=== PATIENT | female | born 1975 | race African-American/Black ===

== ENCOUNTER 2019-02-18 12:21 | Emergency (ER) | payer OTHER ==
--- NOTE | 2019-02-18 13:50 | RAD REPORT ---
EXAM DESCRIPTION: USExtremmoriah Venous Uni Ltd4 1:38 pm CLINICAL HISTORY: Right leg pain . COMPARISON: None. FINDINGS: Right common femoral, superficial femoral, popliteal and right posterior tibial veins are compressible and demonstrate augmentation. Doppler demonstrates good flow. IMPRESSION: No evidence of deep venous thrombosis involving the right lower extremity.
--- NOTE | 2019-02-18 13:53 | RAD REPORT ---
EXAM DESCRIPTION: RAD - Knee Right 3 View - 02/18/2019 1:30 pm CLINICAL HISTORY: Right knee pain FINDINGS: No fracture or dislocation is seen. Knee joint effusion is present. Prominent patellar spurs
[2019-02-18] MEDS ORDERED: KETOROLAC 30 MG/ML INJ ONE (14:26)
--- NOTE | 2019-02-18 14:28 | ER ---
Nurse's Notes [facility] Name: Viv Munoz Age: 43 yrs Sex: Female : 1975 Arrival Date: 02/18/2019 Time: 12:24 Bed 12 Private MD: Lorne Gilliland T Diagnosis: Pain in right knee Presentation: 02/18 12:28 Presenting complaint: Patient states: left knee pain since Tuesday. Denies injury or sv fall. Transition of care: patient was not received from another setting of care. Onset of symptoms was February 13, 2019. Care prior to arrival: None. 12:28 Method Of Arrival: Ambulatory sv 12:28 Acuity: KAREN 4 sv 13:48 Risk Assessment: Do you want to hurt yourself or someone else? Patient reports no hb desire to harm self or others. Initial Sepsis Screen: Does the patient meet any 2 criteria? No. Patient's initial sepsis screen is negative. Does the patient have a suspected source of infection? No. Patient's initial sepsis screen is negative. Historical: - Allergies: 12:29 diphenhydramine HCl; sv 12:29 hydrocodone bitartrate; sv 12:29 Vicodin; sv - PMHx: 12:29 None; sv - PSHx: 12:29 Cholecystectomy; Breast reduction; sv - Immunization history:: Adult Immunizations up to date. - Social history:: Smoking status: Patient/guardian denies using tobacco. - Ebola Screening: : No symptoms or risks identified at this time. Screenin:49 Abuse screen: Denies threats or abuse. Denies injuries from another. Nutritional hb screening: No deficits noted. Tuberculosis screening: No symptoms or risk factors identified. Fall Risk None identified. Assessment: 13:47 General: Appears in no apparent distress. Behavior is calm, cooperative. Pain: Pain hb currently is 10 out of 10 on a pain scale. Neuro: Level of Consciousness is awake, alert, obeys commands, Oriented to person, place, time, situation. Cardiovascular: Capillary refill < 3 seconds Patient's skin is warm and dry. Respiratory: Airway is patent Respiratory effort is even, unlabored, Respiratory pattern is regular, symmetrical. GI: No signs and/or symptoms were reported involving the gastrointestinal system. : No signs and/or symptoms were reported regarding the genitourinary system. EENT: No signs and/or symptoms were reported regarding the EENT system. Derm: Skin is intact, is healthy with good turgor. Musculoskeletal: Reports left knee pain. 14:30 Reassessment: Patient appears in no apparent distress at this time. Patient and/or hb family updated on plan of care and expected duration. Pain level reassessed. Patient is alert, oriented x 3, equal unlabored respirations, skin warm/dry/pink. Patient states symptoms have improved. Vital Signs: 12:29 BP 118 / 76; Pulse 70; Resp 18; Temp 98; Pulse Ox 100% ; Weight 81.65 kg; Height 5 ft. sv 0 in. (152.40 cm); Pain 10/10; 12:29 Body Mass Index 35.15 (81.65 kg, 152.40 cm) sv ED Course: 12:24 Patient arrived in ED. mr 12:25 Lorne Gilliland MD is Private Physician. mr 12:28 Triage completed. sv 12:29 Arm band placed on. sv 12:30 Juan Sales PA is PHCP. jmm 12:30 Seven Guidry MD is Attending Physician. jmm 12:48 Selin Julien RN is Primary Nurse. hb 12:49 Call light in reach. hb 13:30 Knee Right 3 View XRAY In Process Unspecified. EDMS 13:39 US Extremity Venous Unilateral Ltd In Process Unspecified. EDMS 14:28 Roger Maciel MD is Referral Physician. [facility] 15:12 No provider procedures requiring assistance completed. Patient did not have IV access hb during this emergency room visit. Administered Medications: 14:20 Drug: Ketorolac 30 mg Route: IM; Site: right deltoid; la1 15:03 Follow up: Response: No adverse reaction; Pain is decreased la1 Outcome: 14:28 Discharge ordered by . m 15:12 Discharged to home ambulatory. hb 15:12 Condition: stable 15:12 Discharge instructions given to patient, Instructed on discharge instructions, follow up and referral plans. medication usage, Demonstrated understanding of instructions, follow-up care, medications, Prescriptions given X 1. 15:15 Patient left the ED. hb Signatures: Dispatcher [employer] EDMS Phyllis Key RN RN Juan Sales PA PA jmm Rivera, Mary mr Kevin Dimas RN RN la1 Selin Julien, RN RN hb
--- NOTE | 2019-02-18 14:29 | EDPHYS ---
Physician Documentation [facility] Name: Viv Munoz Age: 43 yrs Sex: Female : 1975 Arrival Date: 02/18/2019 Time: 12:24 Bed 12 Private MD: Lorne Gilliland T ED Physician Seven Guidry HPI: 02/18 12:40 This 43 yrs old Black Female presents to ER via Ambulatory with complaints of Knee Pain.jmm 12:40 The patient presents with pain. The complaints affect the posterior aspect of right jmm knee and right knee. Onset: The symptoms/episode began/occurred gradually. Associated signs and symptoms: Pertinent negatives fever. This is a 43 year old female with no chronic medical conditions that presents to the ED with complaints of right knee pain beginning this past Tuesday. Patient denies trauma. Patient localizes pain to the anterior and posterior regions of the right knee. . Historical: - Allergies: 12:29 diphenhydramine HCl; sv 12:29 hydrocodone bitartrate; sv 12:29 Vicodin; sv - PMHx: 12:29 None; sv - PSHx: 12:29 Cholecystectomy; Breast reduction; sv - Immunization history:: Adult Immunizations up to date. - Social history:: Smoking status: Patient/guardian denies using tobacco. - Ebola Screening: : No symptoms or risks identified at this time. ROS: 12:40 Constitutional: Negative for fever, chills, and weight loss, Cardiovascular: Negative jmm for chest pain, palpitations, and edema, Respiratory: Negative for shortness of breath, cough, wheezing, and pleuritic chest pain. 12:40 MS/extremity: Positive for pain. 12:40 All other systems are negative. Exam: 12:40 Constitutional: This is a well developed, well nourished patient who is awake, alert, jmm and in no acute distress. Head/Face: atraumatic. Eyes: EOMI, no conjunctival erythema appreciated ENT: Moist Mucus Membranes Neck: Trachea midline, Supple Chest/axilla: Normal chest wall appearance and motion. Cardiovascular: Regular rate and rhythm. No edema appreciated Respiratory: Normal respirations, no respiratory distress appreciated Abdomen/GI: Non distended, soft Skin: General appearance color normal 12:40 Musculoskeletal/extremity: right anterior knee tender to palpation, no obvious deformity appreciated, FROM appreciated, compartments are soft, NVI. 12:40 Skin: Appearance: Color: normal in color. 12:40 Neuro: Orientation: is normal, Mentation: is normal, Memory: is normal. 12:40 Psych: Behavior/mood is pleasant, cooperative. Vital Signs: 12:29 BP 118 / 76; Pulse 70; Resp 18; Temp 98; Pulse Ox 100% ; Weight 81.65 kg; Height 5 ft. sv 0 in. (152.40 cm); Pain 10/10; 12:29 Body Mass Index 35.15 (81.65 kg, 152.40 cm) sv MDM: 12:38 Patient medically screened. [facility] 14:26 Data reviewed: vital signs, nurses notes. Counseling: I had a detailed discussion with [facility] the patient and/or guardian regarding: the historical points, exam findings, and any diagnostic results supporting the discharge/admit diagnosis, radiology results, the need for outpatient follow up, to return to the emergency department if symptoms worsen or persist or if there are any questions or concerns that arise at home. ED course: Patient is alert and non toxic in appearance in the ED. Patient is afebrile, patient has FROM in the right knee. I do not suspect septic joint. Patient is advised to follow up with ortho for further evaluation. Patient otherwise advised to return to the ED if symptoms worsen. Patient understood and agrees with the plan of care. . 02/18 12:39 Order name: Knee Right 3 View XRAY; Complete Time: 13:57 [facility] 02/18 12:39 Order name: US Extremity Venous Unilateral Ltd; Complete Time: 13:57 [facility] 02/18 13:57 Order name: Asif wrap-joint; Complete Time: 14:13 [facility] Administered Medications: 14:20 Drug: Ketorolac 30 mg Route: IM; Site: right deltoid; la1 15:03 Follow up: Response: No adverse reaction; Pain is decreased la1 Disposition: 02/19 07:53 Co-signature as Attending Physician, Seven Guidry MD I agree with the assessment and ismael plan of care. Disposition: 02/18/19 14:28 Discharged to Home. Impression: Pain in right knee. - Condition is Stable. - Discharge Instructions: Knee Pain. - Prescriptions for Diclofenac Sodium 75 mg Oral Tablet Sustained Release - take 1 tablet by ORAL route 2 times per day; 30 tablet. - Medication Reconciliation Form, Thank You Letter, Antibiotic Education, Prescription Opioid Use, Work release form form. - Follow up: Roger Maciel MD; When: 2 - 3 days; Reason: Recheck today's complaints, Continuance of care, Re-evaluation by your physician. Signatures: Dispatcher [employer] Phyllis Jones RN RN Seven Virk MD MD cha Mickail, Joel, PA PA jmm Attema, Lee, RN RN la1 Selin Julien RN RN hb Corrections: (The following items were deleted from the chart) 02/18 15:15 14:28 02/18/2019 14:28 Discharged to Home. Impression: Pain in right knee. Condition is hb Stable. Forms are Medication Reconciliation Form, Thank You Letter, Antibiotic Education, Prescription Opioid Use. Follow up: Roger Maciel; When: 2 - 3 days; Reason: Recheck today's complaints, Continuance of care, Re-evaluation by your physician. mireya
[2019-02-18 15:21] VITALS: BP 118/76; TEMP 98; O2SAT 100
== END 2019-02-18 15:15 | disposition home or self-care (01) ==
LOC: ER 12:21
DX: M25.561 Pain in right knee (principal); Z88.5 Allergy status to narcotic agent; Z88.8 Allergy status to other drugs, medicaments and biological substances
CPT/HCPCS: 93971; 96372; 99283

== ENCOUNTER 2021-04-26 08:49 | Emergency (ER) | payer OTHER, SELFPAY ==
[2021-04-26] MEDS ORDERED: KETOROLAC 30 MG/ML INJ ONE (09:43)
--- NOTE | 2021-04-26 11:05 | ER ---
Nurse's Notes [facility] Name: Viv Munoz Age: 45 yrs Sex: Female : 1975 Arrival Date: 04/26/2021 Time: 08:52 Bed 15 Private MD: Lorne Gilliland T Diagnosis: Pain in left arm Presentation: 04/26 09:16 Chief complaint: Patient states: L arm pain, numb feeling since Tuesday. No trauma or ll1 falls. PMS intact. Coronavirus screen: Client denies travel out of the [place] in the last 14 days. At this time, the client does not indicate any symptoms associated with coronavirus-19. Ebola Screen: Patient denies travel to an Ebola-affected area in the 21 days before illness onset. Initial Sepsis Screen: Does the patient meet any 2 criteria? No. Patient's initial sepsis screen is negative. Does the patient have a suspected source of infection? No. Patient's initial sepsis screen is negative. Risk Assessment: Do you want to hurt yourself or someone else? Patient reports no desire to harm self or others. Onset of symptoms was April 21, 2021. 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 - Social history:: Smoking status: Patient denies any tobacco usage or history of. Screenin:36 Abuse screen: Denies threats or abuse. Nutritional screening: No deficits noted. ll1 Tuberculosis screening: No symptoms or risk factors identified. Fall Risk None identified. Total Modi Fall Scale indicates No Risk (0-24 pts). Assessment: 09:20 General: Appears in no apparent distress. Behavior is calm, cooperative, appropriate ll1 for age. Pain: Complains of pain in L arm. 09:35 Pain: Complains of pain in L amr Quality of pain is described as aching. ll1 Musculoskeletal: Circulation, motion, and sensation intact. Capillary refill < 3 seconds, Range of motion: intact in all extremities, Reports pain in L arm. Injury Description: none. 10:39 Reassessment: Patient appears in no apparent distress at this time. No changes from ca1 previously documented assessment. Patient is alert, oriented x 3, equal unlabored respirations, skin warm/dry/pink. US at bedside. 11:24 Reassessment: Patient appears in no apparent distress at this time. Patient is alert, ca1 oriented x 3, equal unlabored respirations, skin warm/dry/pink. Vital Signs: 09:16 BP 117 / 85; Pulse 67; Resp 16; Temp 98.0; Pulse Ox 100% ; Weight 89.81 kg; Height 5 ll1 ft. 0 in. (152.40 cm); Pain 7/10; 11:24 BP 110 / 70; Pulse 62; Resp 18 S; Pulse Ox 100% on R/A; ca1 09:16 Body Mass Index 38.67 (89.81 kg, 152.40 cm) ll1 ED Course: 08:52 Patient arrived in ED. am2 08:52 Lorne Gilliland MD is Private Physician. am2 09:06 Chayo Aguilar FNP-C [facility]. kb 09:06 Seven Guidry MD is Attending Physician. kb 09:15 Arm band placed on Patient placed in an exam room, on a stretcher. ll1 09:18 Triage completed. ll1 09:18 Filipe Munoz, CK is Primary Nurse. ll1 09:36 Patient has correct armband on for positive identification. Bed in low position. Call ll1 light in reach. Side rails up X 1. Cardiac monitoring not applicable on this patient. 11:15 UPPER EXTREMITY VENOUS UNILATE In Process Unspecified. EDMS 11:25 No provider procedures requiring assistance completed. Patient did not have IV access ca1 during this emergency room visit. Administered Medications: 09:25 Drug: TORadol (ketorolac) 60 mg Route: IM; Site: right gluteus; ll1 11:25 Follow up: Response: No adverse reaction; Pain is decreased ca1 Outcome: 11:05 Discharge ordered by . kb 11:26 Discharged to home ambulatory. ca1 11:26 Condition: stable 11:26 Discharge instructions given to patient, Instructed on discharge instructions, follow up and referral plans. no drinking with medication, no driving heavy equipment, medication usage, Demonstrated understanding of instructions, follow-up care, medications, Prescriptions given X 2. 11:26 Patient left the ED. ca1 Signatures: Dispatcher [employer] EDChayo Mota, ROXANA REYES-Rhoda Skinner Cheryl RN RN ca1 Filipe Munoz RN RN ll1 Corrections: (The following items were deleted from the chart) 09:36 09:20 General: Appears in no apparent distress. Behavior is calm, cooperative, ll1 appropriate for age, ll1
--- NOTE | 2021-04-26 11:05 | EDPHYS ---
Physician Documentation [facility] Name: Viv Munoz Age: 45 yrs Sex: Female : 1975 Arrival Date: 04/26/2021 Time: 08:52 Bed 15 Private MD: Lorne Gilliland T ED Physician Seven Guidry HPI: 04/26 09:57 This 45 yrs old Black Female presents to ER via Ambulatory with complaints of Arm Pain. kb 09:57 The patient or guardian complains of pain, tenderness, tingling, numbness to left kb thumb. The complaints affect the left hand, left tricep, left elbow and palmar aspect of left forearm. Context: The problem was sustained at home, resulted from unknown cause. Onset: The symptoms/episode began/occurred 6 day(s) ago. Treatment prior to arrival includes: no previous treatment. Modifying factors: The symptoms are alleviated by nothing. the symptoms are aggravated by nothing. Associated signs and symptoms: Pertinent positives: numbness, pain, tingling. Severity of symptoms: At their worst the symptoms were moderate, in the emergency department the symptoms are unchanged. The patient has not experienced similar symptoms in the past. The patient has not recently seen a physician. Pt reports she woke up on Tuesday morning with pain and tingling from mid upper arm to thumb. Reports her thumb feels numb at times. States "it feels like I slept on it and it's asleep or I need to pop it and I can't." ROM, sensation and strength wnl. . 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 - Social history:: Smoking status: Patient denies any tobacco usage or history of. ROS: 09:51 Constitutional: Negative for fever, chills, and weight loss. kb 09:51 MS/extremity: Positive for pain, tenderness, tingling, of the left arm. 09:51 Neuro: Positive for numbness, of the left thumb, Negative for altered mental status, headache, tremor, visual changes. 09:51 All other systems are negative. Exam: 09:53 Constitutional: This is a well developed, well nourished patient who is awake, alert, kb and in no acute distress. Head/Face: Normocephalic, atraumatic. ENT: Moist Mucous membranes Neck: Trachea midline, no thyromegaly or masses palpated, and no cervical lymphadenopathy. Supple, full range of motion without nuchal rigidity, or vertebral point tenderness. No Meningismus. Respiratory: Respirations even and unlabored. No increased work of breathing, no retractions or nasal flaring. Back: No spinal tenderness. No costovertebral tenderness. Full range of motion. Skin: Warm, dry with normal turgor. Normal color. Neuro: Awake and alert, GCS 15, oriented to person, place, time, and situation. Moves all extremities. Normal gait. 5/5 strength in bilateral upper extremities Psych: Awake, alert, with orientation to person, place and time. Behavior, mood, and affect are within normal limits. 09:53 Musculoskeletal/extremity: Extremities: grossly normal except: noted in the left tricep: tenderness, ROM: intact in all extremities, Circulation is intact in all extremities. Sensation intact. DVT Exam: no swelling, negative Homans' sign noted on exam, no appreciated bluish discoloration, no erythema, no increased warmth, pain, tenderness. Vital Signs: 09:16 BP 117 / 85; Pulse 67; Resp 16; Temp 98.0; Pulse Ox 100% ; Weight 89.81 kg; Height 5 ll1 ft. 0 in. (152.40 cm); Pain 7/10; 11:24 BP 110 / 70; Pulse 62; Resp 18 S; Pulse Ox 100% on R/A; ca1 09:16 Body Mass Index 38.67 (89.81 kg, 152.40 cm) ll1 MDM: 09:06 Patient medically screened. kb 09:51 Data reviewed: vital signs, nurses notes. Data interpreted: Pulse oximetry: on room air kb is 100 %. Interpretation: normal. 11:02 Counseling: I had a detailed discussion with the patient and/or guardian regarding: the kb historical points, exam findings, and any diagnostic results supporting the discharge/admit diagnosis, radiology results, the need for outpatient follow up, a family practitioner, to return to the emergency department if symptoms worsen or persist or if there are any questions or concerns that arise at home. 04/26 10:16 Order name: UPPER EXTREMITY VENOUS UNILATE EDHI Administered Medications: 09:25 Drug: TORadol (ketorolac) 60 mg Route: IM; Site: right gluteus; ll1 11:25 Follow up: Response: No adverse reaction; Pain is decreased ca1 Disposition: 04/26/21 11:05 Discharged to Home. Impression: Pain in left arm. - Condition is Stable. - Discharge Instructions: Musculoskeletal Pain, Cervical Radiculopathy, [id number]. - Prescriptions for Ibuprofen 800 mg Oral Tablet - take 1 tablet by ORAL route every 8 hours As needed take with food; 30 tablet. Cyclobenzaprine 10 mg Oral Tablet - take 1 tablet by ORAL route every 8 hours As needed; 21 tablet. - Medication Reconciliation Form, Thank You Letter, Antibiotic Education, Prescription Opioid Use form. - Follow up: Emergency Department; When: As needed; Reason: Worsening of condition. Follow up: Private Physician; When: 2 - 3 days; Reason: Recheck today's complaints, Continuance of care, Re-evaluation by your physician. Addendum: 04/29/2021 07:50 Co-signature as Attending Physician, Seven Guidry MD I agree with the assessment and c watkins plan of care. Signatures: Dispatcher [employer] Chayo Mota, CAMPAIGN CONSULTANT-C CAMPAIGN CONSULTANT-Ckb Seven Guidry MD MD cha Acob, Cheryl, RN RN ca1 Filipe Munoz RN RN ll1 Corrections: (The following items were deleted from the chart) 04/26 09:53 09:51 Neuro: Positive for numbness, of the left thumb, Negative for altered mental kb status, dizziness, gait disturbance, headache, hearing loss, loss of consciousness, seizure activity, speech changes, syncope, tinnitus, tremor, visual changes, weakness, kb 10:16 09:13 Extremity Venous Uni Ltd+[id number].RAD.BRZ ordered. EDHI EDHI 11:26 11:05 04/26/2021 11:05 Discharged to Home. Impression: Pain in left arm. Condition is ca1 Stable. Discharge Instructions: Musculoskeletal Pain, Cervical Radiculopathy, [id number]. Prescriptions for Ibuprofen 800 mg Oral Tablet - take 1 tablet by ORAL route every 8 hours As needed take with food; 30 tablet, Cyclobenzaprine 10 mg Oral Tablet - take 1 tablet by ORAL route every 8 hours As needed; 21 tablet. and Forms are Medication Reconciliation Form, Thank You Letter, Antibiotic Education, Prescription Opioid Use. Follow up: Emergency Department; When: As needed; Reason: Worsening of condition. Follow up: Private Physician; When: 2 - 3 days; Reason: Recheck today's complaints, Continuance of care, Re-evaluation by your physician. kb
[2021-04-26 11:33] VITALS: TEMP 98; O2SAT 100
[2021-04-26 11:34] VITALS: BP 110/70
--- NOTE | 2021-04-26 11:56 | RAD REPORT ---
EXAM DESCRIPTION: US - UPPER EXTREMITY VENOUS UNILATE - 04/26/2021 11:16 am CLINICAL HISTORY: Left arm COMPARISON: None. FINDINGS: Left internal jugular vein, left subclavian vein, left axillary vein, left brachial vein, left cephalic, left basilic, left ulnar and left radial veins demonstrate phasic signal. The veins ar e compressible. Doppler demonstrates good flow. . IMPRESSION: No sonographic evidence of thrombus involving the left upper extremity veins.
== END 2021-04-26 11:26 | disposition home or self-care (01) ==
LOC: ER 08:49
DX: M79.602 Pain in left arm (principal)
CPT/HCPCS: 93971; 96372; 99283

== ENCOUNTER 2023-12-04 19:49 | Inpatient (IN) | payer OTHER ==
[2023-12-04] MEDS ORDERED: FAMOTIDINE 20 MG/2 ML VIAL IV ONE (20:28)
[2023-12-04] MEDS ORDERED: KETOROLAC 30 MG/ML INJ ONE (20:28)
[2023-12-04] MEDS ORDERED: MORPHINE 4 MG/ML SYR ONE (20:28)
[2023-12-04] MEDS ORDERED: ONDANSETRON 4 MG/2 ML VIAL ONE (20:28)
[2023-12-04] MEDS ORDERED: NA CHLORIDE 0.9% 1,000 ML ONE (20:28)
[2023-12-04 20:32] LABS: Absolute Lymphocytes (CBC) 0.9 K/uL (0.7-4.9); Hematocrit 34.1 % (36.0-45.0); Lymphocytes % 6.9 % (15.3-44.8); MCV 74.5 fL (80-100); MPV 6.4 fL (7.6-11.3); Platelets 459 thou/uL (152-406); RBC Red Blood Cell Count 4.58 M/uL (3.86-4.86)
[2023-12-04 20:53] LABS: Bilirubin Total 0.5 mg/dL (0.2-1.0); Potassium 3.8 mEq/L (3.5-5.1); Protein, Total 8.1 g/dL (6.4-8.2)
--- NOTE | 2023-12-04 22:10 | RAD REPORT ---
EXAM DESCRIPTION: CT - Abdomen Pelvis W Contrast - 12/04/2023 9:57 pm CLINICAL HISTORY: Abdominal pain COMPARISON: none. TECHNIQUE: Computed axial tomography of the abdomen pelvis was obtained. 100 cc Isovue-300 was admin istered intravenously. Oral contrast was not requested which limits evaluation of bowel and appendix All CT scans are performed using dose optimization technique as appropriate and may include automated exposure control or mA/KV adjustment according to patient size. FINDINGS: Cholecystectomy. The pancreatic head is inhomogeneous. Mild stranding within the adjacent fat. The liver, spleen, adrenal and kidneys appear unremarkable. There is no evidence of diverticulitis. 2.7 centimeter left ovarian cyst without significant free fluid. No followup imaging recommended Small to moderate umbilical hernia IMPRESSION: The pancreatic head is inhomogeneous. Mild stranding within the adjacent fat. Most likel y this represents mild pancreatitis.
[2023-12-04 22:17] LABS: Specific Gravity > 1.030 (1.005-1.030); Urine Bilirubin NEGATIVE (Negative); Urine Blood Negative (Negative); Urine Clarity Clear (Clear); Urine Color Light-Yellow (Yellow); Urine Glucose NEGATIVE (Negative); Urine Protein NEGATIVE (Negative); Urine Urobilinogen Normal (Normal)
--- NOTE | 2023-12-04 23:43 | EDPHYS ---
Physician Documentation [facility] Name: Viv Plaza Age: 48 yrs Sex: Female : 1975 Arrival Date: 12/04/2023 Time: 19:49 Bed 16 Private MD: ED Physician Owen Plaza HPI: 12/04 19:56 This 48 yrs old Black Female presents to ER via Unassigned with complaints of gen sp4 complaint . 20:21 Presents with moderate upper abdominal pain starting yesterday evening. Associated with sp4 1 episode of vomiting . . 23:34 Presents with upper abdominal pain started yesterday evening after fatty meal, sp4 associated with vomiting. Denied alcohol consumption. Historical: - Allergies: 20:08 diphenhydramine HCl; mb9 20:08 hydrocodone bitartrate; mb9 20:08 Vicodin; mb9 - Home Meds: 20:08 None [Active]; mb9 - PMHx: 20:08 None; mb9 - PSHx: 20:08 Cholecystectomy; mb9 - Immunization history:: Adult Immunizations up to date. - Social history:: Smoking status: Patient denies any tobacco usage or history of. - Family history:: not pertinent. ROS: 23:34 Constitutional: Negative for fever, chills, and weight loss, positive acute upper sp4 abdominal pain , positive vomiting 23:34 All other systems are negative, Exam: 23:34 Constitutional: This is a well developed, well nourished patient who is awake, alert, sp4 and in no acute distress. Head/Face: Normocephalic, atraumatic. Eyes: Pupils equal round and reactive to light, extra-ocular motions intact. Lids and lashes normal. Conjunctiva and sclera are not injected. Cornea within normal limits. Periorbital areas with no swelling, redness, or edema. ENT: Nares patent. No nasal discharge, no septal abnormalities noted. Tympanic membranes are normal and external auditory canals are clear. Oropharynx with no redness, swelling, or masses, exudates, or evidence of obstruction, uvula midline. Mucous membranes moist. Neck: Trachea midline, no thyromegaly or masses palpated, and no cervical lymphadenopathy. Supple, full range of motion without nuchal rigidity, or vertebral point tenderness. Chest/axilla: Normal chest wall appearance and motion. Nontender with no deformity. No lesions are appreciated. Cardiovascular: Regular rate and rhythm with a normal S1 and S2. No gallops, murmurs, or rubs. Normal PMI, no JVD. No pulse deficits. Abdomen/GI: Soft, with normal bowel sounds. No distension or tympany. No guarding or rebound. Pain and tenderness upper abdomen Back: No spinal tenderness. No costovertebral tenderness. Skin: Warm, dry with normal turgor. Normal color with no rashes, no lesions, and no evidence of cellulitis. MS/ Extremity: Pulses equal, no cyanosis. Neurovascular intact. Full, normal range of motion. Neuro: Awake and alert, GCS 15, oriented to person, place, time, and situation. Cranial nerves II-XII grossly intact. Motor strength 5/5 in all extremities. Sensory grossly intact. Psych: Awake, alert, with orientation to person, place and time. Behavior, mood, and affect are within normal limits Vital Signs: 20:07 BP 144 / 92; Pulse 126; Resp 18; Temp 98.2; Pulse Ox 100% ; Weight 81.65 kg; Height 5 mb9 ft. 0 in. ; Pain 10/10; 20:36 BP 115 / 74; Pulse 111; Resp 20; Pulse Ox 99% on R/A; rv 22:08 BP 122 / 85; Pulse 102; Resp 17; Pulse Ox 99% on R/A; rv 20:07 Body Mass Index 35.15 (81.65 kg, 152.4 cm) mb9 20:07 Pain Scale: Adult mb9 Robbie Coma Score: 20:36 Eye Response: spontaneous(4). Motor Response: obeys commands(6). Verbal Response: rv oriented(5). Total: 15. 22:08 Eye Response: spontaneous(4). Motor Response: obeys commands(6). Verbal Response: rv oriented(5). Total: 15. MDM: 20:00 Patient medically screened. sp4 23:34 Differential Diagnosis altered mental status, sepsis, flu, abdominal pathology . Data sp4 reviewed: vital signs, nurses notes, lab test result(s), radiologic studies, CT scan. Consideration of Admission/Observation Patient was admitted/placed on observation. Escalation of care including admission/observation considered. Management of patient was discussed with the following: Hospitalist: Phillip LUCAS . ED course: EXAM DESCRIPTION: CT - Abdomen Pelvis W Contrast - 12/04/2023 9:57 pm CLINICAL HISTORY: Abdominal pain COMPARISON: none. TECHNIQUE: Computed axial tomography of the abdomen pelvis was obtained. 100 cc Isovue-300 was administered intravenously. Oral contrast was not requested which limits evaluation of bowel and appendix All CT scans are performed using dose optimization technique as appropriate and may include automated exposure control or mA/KV adjustment according to patient size. FINDINGS: Cholecystectomy. The pancreatic head is inhomogeneous. Mild stranding within the adjacent fat. The liver, spleen, adrenal and kidneys appear unremarkable. There is no evidence of diverticulitis. 2.7 centimeter left ovarian cyst without significant free fluid. No followup imaging recommended Small to moderate umbilical hernia IMPRESSION: The pancreatic head is inhomogeneous. Mild stranding within the adjacent fat. Most likely this represents mild pancreatitis. . ED course: Patient CT reveals signs of acute pancreatitis. General warrants admission for management of pancreatitis.. 12/04 20:21 Order name: CBC with Diff; Complete Time: 23:15 sp4 12/04 20:21 Order name: CMP; Complete Time: 23:15 sp4 12/04 20:21 Order name: Lipase; Complete Time: 23:15 sp4 12/04 20:21 Order name: Urinalysis w/ reflexes; Complete Time: 23:15 sp4 12/04 20:21 Order name: Test, Serum; Complete Time: 23:15 sp4 12/04 20:21 Order name: SARS RAPID sp4 12/04 23:18 Order name: Lipase; Complete Time: 03:24 sp4 12/05 00:49 Order name: Basic Metabolic Panel EDMS 12/05 00:49 Order name: Basic Metabolic Panel EDMS 12/05 00:49 Order name: CBC with Automated Diff EDMS 12/05 00:49 Order name: CBC with Automated Diff EDMS 12/04 20:21 Order name: CT Abd/Pelvis - IV Contrast Only; Complete Time: 23:15 sp4 12/04 20:21 Order name: IV Saline Lock; Complete Time: 20:36 sp4 12/04 20:21 Order name: Labs collected and sent; Complete Time: 20:36 sp4 12/04 23:17 Order name: NPO; Complete Time: 23:36 sp4 Administered Medications: 12/05 04:21 Discontinued: [id number] ml IV at 125 ml/hr continuous rv 12/04 20:35 Drug: Famotidine IVP 20 mg IVP once; dilute with 10 mL 0.9% NaCl; give over 2 minutes rv Route: IVP; Site: left antecubital; 12/05 04:21 Follow up: Response: No adverse reaction rv 12/04 20:36 Drug: NS 0.9% IV 1000 ml IV at 1 bolus Per protocol; 1000 mL bolus Route: IV; Rate: 1 rv bolus; Site: left antecubital; 12/05 04:21 Follow up: IV Status: Completed infusion; IV Intake: 1000ml rv 12/04 20:36 Drug: Ondansetron IVP 8 mg IVP once; over 2 minutes Route: IVP; Site: left antecubital; rv 12/05 04:21 Follow up: Response: No adverse reaction rv 12/04 20:36 Drug: morphine IVP or IV 4 mg IVP once over 4 mins Route: IVP; Infused Over: 4 mins; rv Site: left antecubital; 22:34 Drug: TORadol - Ketorolac IVP 30 mg IVP once Route: IVP; Site: left antecubital; km8 12/05 04:21 Follow up: Response: No adverse reaction rv 12/04 23:57 Drug: D5-NS IV 1000 ml IV at 125 ml/hr continuous Route: IV; Rate: 125 ml/hr; Site: rv left antecubital; 12/05 04:21 Follow up: IV Status: Order to discontinue infusion rv Disposition Summary: 12/04/23 23:42 Hospitalization Ordered Notes: Hospitalization Status: Inpatient Admission sp4 Provider: Oc Arthur sp4 Condition: Stable sp4 Problem: new sp4 Symptoms: have improved sp4 Bed/Room Type: Standard sp4 Location: Telemetry/MedSurg (Inpatient)(12/05/23 04:26) Room Assignment: [facility](12/05/23 04:26) Diagnosis - Acute pancreatitis sp4 Forms: - Medication Reconciliation Form sp4 - SBAR form sp4 - Leadership Thank You Letter sp4 Signatures: Dispatcher [employer] Savanna Villa RN RN Shabbir Gunter RN RN Gwen Wolff RN RN mb9 Owen Plaza MD MD sp4 Lisa Rossi RN RN km8 Taylor Olguin pm6 Corrections: (The following items were deleted from the chart) 00:16 12/04 23:42 Telemetry/MedSurg (Inpatient) sp4 pm6 12/05 00:16 12/04 23:42 sp4 pm6 12/05 04:26 00:16 [facility] ER HOLD pm6 cg 04:26 00:16 ERHOLD- pm6 cg
--- NOTE | 2023-12-04 23:43 | ER ---
Nurse's Notes [facility] Name: Viv Plaza Age: 48 yrs Sex: Female : 1975 Arrival Date: 12/04/2023 Time: 19:49 Bed 16 Private MD: Diagnosis: Acute pancreatitis Presentation: 12/04 20:07 Chief complaint: Patient states: "My stomach started hurting yesterday and I've been mb9 nauseous. I haven't had pain like this before and it's not going away.". Coronavirus screen: Vaccine status: Patient reports receiving the 2nd dose of the covid vaccine. Ebola Screen: No symptoms or risks identified at this time. Initial Sepsis Screen: Does the patient meet any 2 criteria? No. Patient's initial sepsis screen is negative. Does the patient have a suspected source of infection? No. Patient's initial sepsis screen is negative. Risk Assessment: Do you want to hurt yourself or someone else? Patient reports no desire to harm self or others. Onset of symptoms was December 04, 2023. 20:07 Method Of Arrival: Ambulatory mb9 20:07 Acuity: KAREN 3 mb9 Triage Assessment: 20:09 General: Appears uncomfortable, Behavior is calm, cooperative. Pain: Complains of pain mb9 in abdomen Pain does not radiate. Pain began 1 day ago. EENT: No signs and/or symptoms were reported regarding the EENT system. Neuro: Level of Consciousness is awake, alert, obeys commands, Oriented to person, place, time, situation, Appropriate for age. Cardiovascular: Patient's skin is warm and dry. Respiratory: Airway is patent Respiratory effort is even, unlabored, Respiratory pattern is regular, symmetrical. GI: Abdomen is round non-distended, Reports lower abdominal pain, upper abdominal pain, nausea. : No signs and/or symptoms were reported regarding the genitourinary system. Derm: Skin is pink, warm \\T\\ dry. Historical: - Allergies: 20:08 diphenhydramine HCl; mb9 20:08 hydrocodone bitartrate; mb9 20:08 Vicodin; mb9 - Home Meds: 20:08 None [Active]; mb9 - PMHx: 20:08 None; mb9 - PSHx: 20:08 Cholecystectomy; mb9 - Immunization history:: Adult Immunizations up to date. - Social history:: Smoking status: Patient denies any tobacco usage or history of. - Family history:: not pertinent. Screenin:36 [facility] ED Fall Risk Assessment (Adult) History of falling in the last 3 months, rv including since admission No falls in past 3 months (0 pts) Score/Fall Risk Level 0 - 2 = Low Risk Oriented to surroundings, Maintained a safe environment, Educated pt \\T\\ family on fall prevention, incl call for assistance when getting out of bed, Assessed \\T\\ reinforced patient's understanding of fall precautions. Abuse screen: Denies threats or abuse. Denies injuries from another. Nutritional screening: No deficits noted. Tuberculosis screening: No symptoms or risk factors identified. Assessment: 20:36 General: Appears uncomfortable, Behavior is calm, cooperative. Pain: Complains of pain rv in abdomen. Neuro: Level of Consciousness is awake, alert, obeys commands, Oriented to person, place, time, situation. Cardiovascular: Capillary refill < 3 seconds Patient's skin is warm and dry. Respiratory: Airway is patent Respiratory effort is even, unlabored. GI: Abdomen is round distended. : No signs and/or symptoms were reported regarding the genitourinary system. Derm: Skin is intact. Vital Signs: 20:07 BP 144 / 92; Pulse 126; Resp 18; Temp 98.2; Pulse Ox 100% ; Weight 81.65 kg; Height 5 mb9 ft. 0 in. ; Pain 10/10; 20:36 BP 115 / 74; Pulse 111; Resp 20; Pulse Ox 99% on R/A; rv 22:08 BP 122 / 85; Pulse 102; Resp 17; Pulse Ox 99% on R/A; rv 20:07 Body Mass Index 35.15 (81.65 kg, 152.4 cm) mb9 20:07 Pain Scale: Adult mb9 Bowman Coma Score: 20:36 Eye Response: spontaneous(4). Motor Response: obeys commands(6). Verbal Response: rv oriented(5). Total: 15. 22:08 Eye Response: spontaneous(4). Motor Response: obeys commands(6). Verbal Response: rv oriented(5). Total: 15. ED Course: 19:53 Patient arrived in ED. jb4 19:55 Owen Plaza MD is Attending Physician. sp4 20:08 Triage completed. mb9 20:09 Arm band placed on. mb9 20:25 Shabbir Gunter RN is Primary Nurse. rv 20:36 Patient has correct armband on for positive identification. Client placed on continuous rv cardiac and pulse oximetry monitoring. NIBP monitoring applied. 20:36 No provider procedures requiring assistance completed. Inserted saline lock: 20 gauge rv in left antecubital area, using aseptic technique. Blood collected. 20:42 Test, Serum Sent. rv 20:42 CMP Sent. rv 20:42 Lipase Sent. rv 21:57 CT Abd/Pelvis - IV Contrast Only In Process Unspecified. EDMS 23:41 Oc Arthur MD is Hospitalizing Provider. sp4 23:57 Lipase Sent. rv 12/05 04:22 Patient admitted, IV remains in place. rv Administered Medications: 04:21 Discontinued: [id number] ml IV at 125 ml/hr continuous rv 12/04 20:35 Drug: Famotidine IVP 20 mg IVP once; dilute with 10 mL 0.9% NaCl; give over 2 minutes rv Route: IVP; Site: left antecubital; 12/05 04:21 Follow up: Response: No adverse reaction rv 12/04 20:36 Drug: NS 0.9% IV 1000 ml IV at 1 bolus Per protocol; 1000 mL bolus Route: IV; Rate: 1 rv bolus; Site: left antecubital; 12/05 04:21 Follow up: IV Status: Completed infusion; IV Intake: 1000ml rv 12/04 20:36 Drug: Ondansetron IVP 8 mg IVP once; over 2 minutes Route: IVP; Site: left antecubital; rv 12/05 04:21 Follow up: Response: No adverse reaction rv 12/04 20:36 Drug: morphine IVP or IV 4 mg IVP once over 4 mins Route: IVP; Infused Over: 4 mins; rv Site: left antecubital; 22:34 Drug: TORadol - Ketorolac IVP 30 mg IVP once Route: IVP; Site: left antecubital; km8 12/05 04:21 Follow up: Response: No adverse reaction rv 12/04 23:57 Drug: D5-NS IV 1000 ml IV at 125 ml/hr continuous Route: IV; Rate: 125 ml/hr; Site: rv left antecubital; 12/05 04:21 Follow up: IV Status: Order to discontinue infusion rv Medication: 12/04 20:36 VIS not applicable for this client. rv Intake: 12/05 04:21 IV: 1000ml; Total: 1000ml. rv Outcome: 12/04 23:42 Decision to Hospitalize by Provider. sp4 12/05 04:22 Admitted to ER Hold. Please see [facility] for further documentation. rv Condition: good Instructed on the need for admit, 05:04 Patient left the ED. km8 Signatures: Dispatcher [employer] EDMS Alvino Ashton RN RN jb4 Shabbir Gunter RN RN rv Gwen Wolff RN RN Owen Orosco MD MD sp4 Lisa Rossi RN RN km8
[2023-12-04] MEDS ORDERED: D5 0.9 NS 1,000 ML IV ONE (23:53)
[2023-12-05] MEDS ORDERED: ACETAMINOPHEN 325 MG TABLET PO PRN (00:43)
[2023-12-05] MEDS ORDERED: ONDANSETRON 4 MG/2 ML VIAL IV PRN (00:43)
[2023-12-05] MEDS ORDERED: MAGNESIUM HYDROXIDE 8% 30 ML PO PRN (00:43)
[2023-12-05] MEDS ORDERED: HYDROMORPHONE HCL 0.5 MG/0.5 ML INJ IV PRN (00:49)
--- NOTE | 2023-12-05 00:51 | P.HP ---
Certification for Inpatient Patient admitted to: Inpatient With expected LOS: >2 Midnights Practitioner: I am a practitioner with admitting privileges, knowledge of patient current condition, hospital course, and medical plan of care. Services: Services provided to patient in accordance with Admission requirements found in Title 42 Section 412.3 of the Code of Federal Regulations Patient History Date of Service: 12/05/23 Reason for admission: Acute pancreatitis. History of Present Illness: 48-year-old female patient was medical history significant for prior cholecystectomy due to gallstone who came to the ED with complaint of abdominal pain. Pain was associated with eating fatty meal and she had associated vomiting. No fever, chills, rigor, diarrhea reported.. Lipase was done in the ER was mildly elevated and had a CT of the abdomen/pelvis done that revealed a mild stranding of the head of pancreas depicting pancreatitis. She was started on IV fluid and pain medication she was admitted for inpatient care. Allergies acetaminophen [From Vicodin] Allergy (Mild, Verified 07/10/12 15:54) Hives/Rash diphenhydramine HCl [From Benadryl] Allergy (Mild, Verified 07/10/12 15:54) Hives/Rash hydrocodone bitartrate [From Vicodin] Allergy (Mild, Verified 07/10/12 15:54) Hives/Rash Review of Systems General: Unremarkable Eyes: Unremarkable ENT: Unremarkable Respiratory: Unremarkable Cardiovascular: Unremarkable Gastrointestinal: Vomiting, Abdominal Pain Genitourinary: Unremarkable Musculoskeletal: Unremarkable Integumentary: Unremarkable Neurological: Unremarkable Lymphatics: Unremarkable Physical Examination - Physical Exam General: Alert, Oriented x3 HEENT: Atraumatic Neck: Supple Respiratory: Normal air movement Cardiovascular: Normal pulses, Regular rate/rhythm Gastrointestinal: Tenderness Musculoskeletal: No swelling Neurological: Normal speech, Normal strength at 5/5 x4 extr - Studies Laboratory Data (last 24 hrs) 12/04/23 12/04/23 12/04/23 23:50 20:24 20:24 WBC 13.20 H Hgb 10.9 L Hct 34.1 L Plt Count 459 H Sodium 136 Potassium 3.8 BUN 8 Creatinine 0.99 Glucose 106 Total Bilirubin 0.5 AST 7 L ALT 15 Alkaline Phosphatase 64 Lipase 21 19 Assessment and Plan - Plan Acute pancreatitis: Patient has CT finding of pancreatic stranding. Will continue pain control medication with as needed Dilaudid, IV hydration with lactated Ringer's. Will have a bowel rest. Will monitor symptomatology closely. Prophylaxis: Lovenox for DVT prophylaxis CODE STATUS: Full code. Disposition: We will treat her acute pancreatitis episode and discharge home once she is deemed clinically stable. - Advance Directives Does patient have a Living Will: No Does patient have a Durable POA for Healthcare: No
[2023-12-05] MEDS: Ringers Lactate 1,000 ML IV SCH (01:00)
[2023-12-05 01:24] VITALS: O2SAT 99; BMI 35.2
[2023-12-05] MEDS ORDERED: Ringers Lactate 1,000 ML IV ONE (02:21)
--- NOTE | 2023-12-05 08:02 | P.PN ---
Subjective Date of Service: 12/06/23 Chief Complaint: Acute pancreatitis. Presented with acute pancreatitis abdominal pain, nausea vomiting, no reported fever or chills, - Physical Exam General: Alert, Oriented x3 HEENT: Atraumatic Neck: Supple Respiratory: Normal air movement Cardiovascular: Normal pulses, Regular rate/rhythm Gastrointestinal: Tenderness Musculoskeletal: No swelling Neurological: Normal speech, Normal strength at 5/5 x4 extr Review of Systems per HPI Physical Examination - Vital Signs Temperature: 98 F Blood Pressure: 124/78 Pulse: 88 Respirations: 16 Pulse Ox (%): 99 - Studies Laboratory Data (last 24 hrs) 12/04/23 12/04/23 12/04/23 23:50 20:24 20:24 WBC 13.20 H Hgb 10.9 L Hct 34.1 L Plt Count 459 H Sodium 136 Potassium 3.8 BUN 8 Creatinine 0.99 Glucose 106 Total Bilirubin 0.5 AST 7 L ALT 15 Alkaline Phosphatase 64 Lipase 21 19 Assessment And Plan - Plan Assessment plan Acute pancreatitis Leukocytosis tach likely secondary to pancreatitis Patient has CT finding of pancreatic stranding. Will continue pain control medication with as needed Dilaudid, IV hydration with lactated Ringer's. Will have a bowel rest. Will monitor symptomatology closely WBC13.20 Thrombocytosis Platelets 459 Umbilical hernia stable Follow-up outpatient for monitoring Prophylaxis: Lovenox for DVT prophylaxis Diet n.p.o. CODE STATUS: Full code. Disposition: We will treat her acute pancreatitis episode and discharge home once she is deemed clinically stable. Discharge Plan: Home - Code Status/Comfort Care Code Status: Full Code Critical Care: No Time Spent Managing PTS Care (In Minutes): 35
[2023-12-05] MEDS: ENOXAPARIN 40 MG/0.4 ML SQ SCH (08:43)
[2023-12-06 07:40] LABS: Potassium 4.1 mEq/L (3.5-5.1)
[2023-12-06 07:45] LABS: Absolute Lymphocytes (CBC) 1.3 K/uL (0.7-4.9); Hematocrit 29.1 % (36.0-45.0); Lymphocytes % 19.4 % (15.3-44.8); MCV 75.1 fL (80-100); MPV 6.5 fL (7.6-11.3); Platelets 402 thou/uL (152-406); RBC Red Blood Cell Count 3.87 M/uL (3.86-4.86)
--- NOTE | 2023-12-06 18:28 | P.PN ---
Subjective Date of Service: 12/06/23 Chief Complaint: Acute pancreatitis. Presented with acute pancreatitis abdominal pain, nausea vomiting, no reported fever or chills, - Physical Exam General: Alert, Oriented x3 HEENT: Atraumatic Neck: Supple Respiratory: Normal air movement Cardiovascular: Normal pulses, Regular rate/rhythm Gastrointestinal: Tenderness Musculoskeletal: No swelling Neurological: Normal speech, Normal strength at 5/5 x4 extr Physical Examination - Vital Signs Temperature: 97.3 F Blood Pressure: 120/62 Pulse: 74 Respirations: 18 Pulse Ox (%): 97 Assessment And Plan - Plan Assessment plan Acute pancreatitis Leukocytosis tach likely secondary to pancreatitis Patient has CT finding of pancreatic stranding. Will continue pain control medication with as needed Dilaudid, IV hydration with lactated Ringer's. Will have a bowel rest. Will monitor symptomatology closely WBC13.20 Thrombocytosis Platelets 459 Umbilical hernia stable Follow-up outpatient for monitoring Prophylaxis: Lovenox for DVT prophylaxis Diet n.p.o. CODE STATUS: Full code. Disposition: We will treat her acute pancreatitis episode and discharge home once she is deemed clinically stable.
--- NOTE | 2023-12-06 18:40 | P.DS ---
Admission Date: 12/05/23 Discharge Date: 12/06/23 Disposition: ROUTINE DISCHARGE Discharge Condition: GOOD Reason for Admission: Acute pancreatitis. Brief History of Present Illness: 48-year-old female patient was medical history significant for prior cholecystectomy due to gallstone who came to the ED with complaint of abdominal pain. Pain was associated with eating fatty meal and she had associated vomiting. No fever, chills, rigor, diarrhea reported.. Lipase was done in the ER was mildly elevated and had a CT of the abdomen/pelvis done that revealed a mild stranding of the head of pancreas depicting pancreatitis. She was started on IV fluid and pain medication she was admitted for inpatient care. - Physical Exam General: Alert, Oriented x3 HEENT: Atraumatic Neck: Supple Respiratory: Normal air movement Cardiovascular: Normal pulses, Regular rate/rhythm Gastrointestinal: Tenderness Musculoskeletal: No swelling Neurological: Normal speech, Normal strength at 5/5 x4 extr Hospital Course: 48-year-old female patient presented with abdominal pain. Was noted to have possible acute pancreatitis. Versus gastroenteritis Was treated with IV fluids, IV antibiotics, as needed analgesics. Condition improved with treatment plan Stable for discharge to with follow-up appointment with primary care physician. Tolerating diet, no acute pain. Fever, nausea vomiting PROBLEM: Abdominal pain Gastroenteritis versus acute pancreatitis Leukocytosis Continue home medicines as previously prescribed GOAL: Clear understanding of disease process INSTRUCTIONS: Physician Discharge Instructions: -DC IV and DC home -Follow-up with PCP in 1 to 2 weeks -Please call Dr. Johnson at [phone] if any questions regarding hospital stay -Please call nursing station at [phone] if any nursing or medication questions -Return to the emergency room if symptoms worsen Diet: ADA, low sodium Activity: Fall precautions DME: Date Ordered: Name of Company: [employer] Services Needed: None Date or Referral: IMMUNIZATION Influenza Vaccine Indicated: Influenza Vaccine Given: Date Given: Pneumonia Vaccine Indicated: Pneumonia Vaccine Given: Date Given: Vital Signs/Physical Exam: Temp Pulse Resp BP Pulse Ox 98 F 88 16 124/78 99 12/06/23 18:37 12/06/23 18:37 12/06/23 18:37 12/06/23 18:37 12/06/23 18:37 Laboratory Data at Discharge: WBC 6.80 thou/uL (4.3-10.9) 12/06/23 06:58 Hgb 9.4 g/dL (12.0-15.0) L 12/06/23 06:58 Hct 29.1 % (36.0-45.0) L 12/06/23 06:58 Plt Count 402 thou/uL (152-406) 12/06/23 06:58 Sodium 138 mEq/L (136-145) 12/06/23 06:58 Potassium 4.1 mEq/L (3.5-5.1) 12/06/23 06:58 BUN 6 mg/dL (7-18) L 12/06/23 06:58 Creatinine 0.76 mg/dL (0.55-1.02) 12/06/23 06:58 Glucose 76 mg/dL (74-106) 12/06/23 06:58 Total Bilirubin 0.5 mg/dL (0.2-1.0) 12/04/23 20:24 AST 7 U/L (15-37) L 12/04/23 20:24 ALT 15 U/L (13-56) 12/04/23 20:24 Alkaline Phosphatase 64 U/L (45-117) 12/04/23 20:24 Lipase 21 U/L (13-75) 12/04/23 23:50 Home Medications: NK [No Home Meds] 12/06/23 Physician Discharge Instructions: -DC IV and DC home -Follow-up with PCP in 1 to 2 weeks -Please call Dr. Johnson at [phone] if any questions regarding hospital stay -Please call nursing station at [phone] if any nursing or medication questions -Return to the emergency room if symptoms worsen Diet: low fat Activity: Fall precautions Followup: Lisa Pugh, [employer] [Primary Care Provider] - Time spent managing pt's care (in minutes): 55
[2023-12-06 18:54] VITALS: BP 124/78; TEMP 98
== END 2023-12-06 20:20 | disposition home or self-care (01) | DRG 440 ==
LOC: ER 19:49 → ERHOLD 12-05 00:43 → 2ND 12-05 04:37
PROVIDERS: ADMIT Internal Medicine Nephrology; ATTEND Hospitalist
DX: K85.90 Acute pancreatitis without necrosis or infection, unspecified (principal); D69.6 Thrombocytopenia, unspecified; K42.9 Umbilical hernia without obstruction or gangrene; K52.9 Noninfective gastroenteritis and colitis, unspecified; Z88.5 Allergy status to narcotic agent; Z90.49 Acquired absence of other specified parts of digestive tract
CPT/HCPCS: 36415; 74177; 80048; 80053; 81003; 83690; 84703; 85025; J1650; J2405; J7030; J7042; J7120; Q9967